=== PATIENT | female | born 1945 | race Caucasian/White ===

== ENCOUNTER 2017-12-14 01:17 | Inpatient (IN) | payer MEDICARE, OTHER ==
[2017-12-14] MEDS: SODIUM CHLORIDE 0.9% 1L BAG IV* ×2 (01:35→03:34)
[2017-12-14] MEDS: DILTIAZEM 25 MG INJ IV ×2 (01:35→05:43)
[2017-12-14 02:41] LABS: ABNORMAL IP MESSAGE 1; HEMOGLOBIN 9.9 g/dl (12.0-16.0); MEAN CORPUSCULAR HEMOGLOBIN 28.4 pg (29.0-33.0); MEAN PLATELET VOLUME 9.1 fl (7.4-10.4); NUCLEATED RED BLOOD CELLS% 2.7 /100WBC (0.0-0.0); PLATELET COUNT 62 10^3/UL (140-415); RED BLOOD COUNT 3.49 10^6/ul (4.20-5.40); RED CELL DISTRIBUTION WIDTH 16.5 % (11.5-14.5)
[2017-12-14 02:41] LABS: WHITE BLOOD COUNT 2.2 10^3/ul (4.8-10.8)
[2017-12-14] MEDS: morphine 4 MG/ML VIAL IV (02:54)
[2017-12-14] MEDS: METOPROLOL 5 MG INJ IV ×2 (02:55→04:55)
[2017-12-14 02:58] LABS: ALANINE AMINOTRANSFERASE 57 IU/L (13-69); ALBUMIN 2.1 g/dl (3.3-4.9); ALBUMIN/GLOBULIN RATIO 0.91; ALKALINE PHOSPHATASE 76 IU/L (42-121); ANION GAP 11 (8-16); ASPARTATE AMINO TRANSFERASE 22 IU/L (15-46); BILIRUBIN,INDIRECT 0.3 mg/dl (0-1.1); BILIRUBIN,TOTAL 0.3 mg/dl (0.2-1.3); BLOOD UREA NITROGEN 16 mg/dl (7-20); CALCIUM 7.3 mg/dl (8.4-10.2); CARBON DIOXIDE 23 mmol/L (21-31); CHLORIDE 104 mmol/L (97-110); GLUCOSE 137 mg/dl (70-220); POTASSIUM 3.5 mmol/L (3.5-5.1); SODIUM 134 mmol/L (135-144); TOTAL PROTEIN 4.4 g/dl (6.1-8.1)
[2017-12-14 03:01] LABS: INR 1.09; PROTIME 14.3 Sec (11.9-14.9); PT RATIO 1.1
[2017-12-14 03:02] LABS: PARTIAL THROMBOPLASTIN TIME 27.2 Sec (25.0-35.0)
[2017-12-14 03:09] LABS: POSITIVE DIFF @See below
[2017-12-14 03:11] LABS: LACTIC ACID 4.5 mmol/L (0.5-2.0)
[2017-12-14 03:13] LABS: ADD MAN DIFF? YES
[2017-12-14] MEDS: CEFEPIME 2GM/50 ML (PMX) 50 ML IVPB (03:40)
[2017-12-14] MEDS ORDERED: NACL 0.9% 3 ML SYG IV (04:00)
[2017-12-14] MEDS ORDERED: BISACODYL (EC) 5 MG TAB PO (04:00)
[2017-12-14] MEDS ORDERED: HYDROCODONE/APAP (5/325) TAB PO (04:00)
[2017-12-14] MEDS ORDERED: DOCUSATE SODIUM 100 MG CAP PO (04:00)
[2017-12-14] MEDS ORDERED: ONDANSETRON 4 MG INJ IV (04:00)
[2017-12-14] MEDS ORDERED: morphine 2 MG INJ IV (04:00)
[2017-12-14] MEDS ORDERED: ACETAMINOPHEN 325 MG TAB PO (04:00)
[2017-12-14 04:02] LABS: BAND NEUTROPHILS #M 0.8 10^3/ul (0.0-0.6); BAND NEUTROPHILS % (M) 40 % (0-4); ERYTHROBLAST% (NRBC) (M) 3 % (0-0); LYMPHOCYTES % (M) 3 % (15-51); MONOCYTES % (M) 2 % (0-11); MYELOCYTES % (M) 2 % (0-0); PLATELET ESTIMATE DECREASED; POLYCHROMASIA 1+ (0-0); SEG NEUT #M 1.2 10^3/ul (1.6-7.5); SEGMENTED NEUTROPHILS (M) % 53 % (39-77); SMUDGE%M 2 % (0-0)
[2017-12-14] MEDS: VANCOMYCIN 1 GM (PMX) 250 ML IVPB (04:27)
[2017-12-14] MEDS: HYDROmorphONE 0.5 MG/0.5 ML SYG IV (05:15)
[2017-12-14] MEDS: SOD CHLORIDE 0.9% 1,000 ML IV ×5 (05:30→16:14)
[2017-12-14] MEDS ORDERED: ACETAMINOPHEN 650MG/20.3ML CUP PO (05:30)
[2017-12-14] MEDS ORDERED: HYDROmorphONE 0.5 MG/0.5 ML SYG IV (05:30)
[2017-12-14] MEDS: IOHEXOL 300MG/ML 150 ML BTL (05:55)
[2017-12-14] MEDS: SOD CHLORIDE 0.9% 100 ML ×2 (05:55→10:59)
[2017-12-14] MEDS ORDERED: VANCOMYCIN IV PER PHARMACY XX (06:00)
[2017-12-14] MEDS: AMIODARONE 150MG/D5W BOLUS 100 ML IV (06:11)
[2017-12-14] MEDS ORDERED: SUCCINYLCHOLINE CHLORIDE 100 MG/5 ML SYG IV (07:00)
[2017-12-14] MEDS ORDERED: ETOMIDATE 20 MG INJ (07:00)
[2017-12-14] MEDS: ETOMIDATE 20 MG INJ IV (07:19)
[2017-12-14] MEDS: SUCCINYLCHOLINE CHLORIDE 100 MG/5 ML SYG IV (07:19)
[2017-12-14] MEDS: NORepinephrine 8MG/250 ML (PMX 250 ML IV ×3 (07:21→15:31)
[2017-12-14] MEDS: LORAZEPAM 2 MG INJ IV (07:21)
[2017-12-14] MEDS ORDERED: DOPamine-D5W 1.6 MG/ML 250 ML (07:31)
[2017-12-14 07:50] LABS: AADO2 Arterial 599.1 mmHg (7.0-24.0); Allen Test ACCEPTAB; Arterial Base Excess -8.2 mmol/L (-3.0-3); Arterial Blood Gas Oxygen Sat 96.2 mmHG (95.0-98.0); Arterial COHb 0.3 % (0.0-3.0); Arterial Fraction of Oxyhgb 95.6 % (93.0-99.0); Arterial HCO3 15.8 mmol/L (22.0-26.0); Arterial MetHb 0.3 % (0.0-1.5); Arterial Total Hemglobin 11.7 g/dl (12.0-18.0); Arterial pCO2 27.9 mmhg (35-45); MODE VENT - AC; Site Left Radial
[2017-12-14] MEDS: DOBUTamine/D5W 1 MG/ML DRIP 250 ML IV (07:55)
[2017-12-14] MEDS: PIPER-TAZO 3.375 GM IV (PMX) 100 ML IVPB ×2 (08:00→14:59)
[2017-12-14] MEDS: PANTOPRAZOLE 40 MG INJ IV (08:00)
[2017-12-14 08:52] LABS: CREATINE KINASE 27 IU/L (23-200)
[2017-12-14 08:56] LABS: LACTIC ACID 6.3 mmol/L (0.5-2.0)
[2017-12-14 09:03] LABS: CK INDEX 5.1; CK-MB 1.38 ng/ml (0.0-2.4); TROPONIN-I 0.089 ng/ml (0.000-0.120)
[2017-12-14] MEDS: PHENYLephrine 20MG IN 250 ML 250 ML IV (09:05)
[2017-12-14] MEDS: SOD CHLORIDE 0.9% 500 ML IV (09:08)
[2017-12-14] MEDS: ENOXAPARIN 40 MG/0.4 ML SYG SC (10:17)
[2017-12-14] MEDS: MIDAZOLAM (DRIP) 50 mg/50 mL 50 ML IV ×3 (10:36→19:23)
[2017-12-14] MEDS ORDERED: ACETAMINOPHEN 650 MG SUPP PR (10:44)
[2017-12-14] MEDS: ACETAMINOPHEN 650 MG SUPP PR ×2 (10:46→18:07)
[2017-12-14] MEDS: IOHEXOL 100 ML (10:59)
[2017-12-14] MEDS ORDERED: NORepinephrine 8MG/250 ML (PMX 250 ML IV (12:30)
[2017-12-14 13:11] LABS: LACTIC ACID 4.2 mmol/L (0.5-2.0)
[2017-12-14] MEDS: VASOPRESSIN 60 UNIT in DEXTROSE 5% 57 ML IV (14:43)
[2017-12-14] MEDS ORDERED: FENTAnyl (DRIP) 1000 mcg/100mL 100 ML IV (15:00)
[2017-12-14] MEDS ORDERED: VANCOMYCIN 500MG/NS (PMX) 100 ML IVPB (16:00)
[2017-12-14] MEDS ORDERED: AMIKACIN IV PER PHARMACY XX (16:00)
[2017-12-14] MEDS: FENTAnyl (DRIP) 1000 mcg/100mL 100 ML IV (16:01)
[2017-12-14] MEDS: PHENYLephrine 40 MG in DEXTROSE 5% 496 ML IV ×3 (16:24→22:04)
[2017-12-14] MEDS: MEROPENEM 1 GM/50ML(PMX) 50 ML IVPB (16:29)
[2017-12-14] MEDS ORDERED: AMIKACIN 450 MG in DEXTROSE 5% 100 ML IVPB (18:00)
[2017-12-14 20:39] LABS: AADO2 Arterial 185.3 mmHg (7.0-24.0); Allen Test ACCEPTAB; Arterial Base Excess -14.4 mmol/L (-3.0-3); Arterial Blood Gas Oxygen Sat 98.4 mmHG (95.0-98.0); Arterial COHb 0.3 % (0.0-3.0); Arterial Fraction of Oxyhgb 97.8 % (93.0-99.0); Arterial HCO3 9.1 mmol/L (22.0-26.0); Arterial MetHb 0.3 % (0.0-1.5); Arterial Total Hemglobin 10.7 g/dl (12.0-18.0); MODE VENT - AC; Site Right Radial
[2017-12-14] MEDS: SOD CHLORIDE 0.9% IVPB (20:43)
[2017-12-14] MEDS: AMIKACIN IVPB (20:43)
[2017-12-14 20:49] LABS: LACTIC ACID 7.1 mmol/L (0.5-2.0)
[2017-12-14] MEDS: SODIUM BICARBONATE (IV ADD) 150 MEQ in DEXTROSE 5% 850 ML IV (22:38)
[2017-12-14] MEDS ORDERED: NA BICARBONATE 8.4% 50 ML SYG (23:28)
[2017-12-14] MEDS: NA BICARBONATE 8.4% 50 ML SYG IV (23:50)
[2017-12-15] MEDS: MEROPENEM 1 GM/50ML(PMX) 50 ML IVPB ×3 (00:02→14:39)
[2017-12-15] MEDS: NYSTATIN 30 GM POWDER BTL TOP ×2 (00:23→08:05)
[2017-12-15] MEDS: PHENYLephrine 40 MG in DEXTROSE 5% 496 ML IV ×8 (00:24→18:08)
[2017-12-15] MEDS: EPINEPHrine 4 MG in DEXTROSE 5% 246 ML IV ×4 (00:45→15:19)
[2017-12-15 01:01] LABS: AADO2 Arterial 185.3 mmHg (7.0-24.0); Allen Test ACCEPTAB; Arterial Base Excess -14.4 mmol/L (-3.0-3); Arterial Blood Gas Oxygen Sat 98.4 mmHG (95.0-98.0); Arterial COHb 0.3 % (0.0-3.0); Arterial Fraction of Oxyhgb 97.8 % (93.0-99.0); Arterial HCO3 9.1 mmol/L (22.0-26.0); Arterial MetHb 0.3 % (0.0-1.5); Arterial Total Hemglobin 10.7 g/dl (12.0-18.0); MODE VENT - AC; Site Right Radial
[2017-12-15] MEDS: VASOPRESSIN 60 UNIT in DEXTROSE 5% 57 ML IV (03:47)
[2017-12-15 05:37] LABS: LACTIC ACID 7.8 mmol/L (0.5-2.0)
[2017-12-15 05:54] LABS: MAGNESIUM 1.5 mg/dl (1.7-2.5)
[2017-12-15 06:01] LABS: ABNORMAL IP MESSAGE 1; HEMATOCRIT 26.7 % (37.0-47.0); HEMOGLOBIN 8.9 g/dl (12.0-16.0); MEAN CORPUSCULAR HEMOGLOBIN 28.9 pg (29.0-33.0); MEAN CORPUSCULAR HGB CONC 33.3 g/dl (32.0-37.0); MEAN CORPUSCULAR VOLUME 86.7 fl (82.0-101.0); NUCLEATED RED BLOOD CELLS% 16.2 /100WBC (0.0-0.0); RED BLOOD COUNT 3.08 10^6/ul (4.20-5.40); RED CELL DISTRIBUTION WIDTH 17.6 % (11.5-14.5)
[2017-12-15 06:04] LABS: ADD MAN DIFF? YES; PLATELET COUNT 34 10^3/UL (140-415); POSITIVE DIFF @See below
[2017-12-15] MEDS: PANTOPRAZOLE 40 MG INJ IV (06:16)
[2017-12-15] MEDS: ACETAMINOPHEN 650 MG SUPP PR (06:22)
[2017-12-15 07:55] LABS: ALANINE AMINOTRANSFERASE 340 IU/L (13-69); ALBUMIN 1.2 g/dl (3.3-4.9); ALKALINE PHOSPHATASE 67 IU/L (42-121); ANION GAP 14 (8-16); ASPARTATE AMINO TRANSFERASE 378 IU/L (15-46); BILIRUBIN,INDIRECT 0.2 mg/dl (0-1.1); BILIRUBIN,TOTAL 0.2 mg/dl (0.2-1.3); BLOOD UREA NITROGEN 16 mg/dl (7-20); CARBON DIOXIDE 15 mmol/L (21-31); CHLORIDE 102 mmol/L (97-110); CREATININE 0.66 mg/dl (0.44-1.00); GLUCOSE 386 mg/dl (70-220); POTASSIUM 3.2 mmol/L (3.5-5.1); SODIUM 128 mmol/L (135-144); TOTAL PROTEIN 2.7 g/dl (6.1-8.1)
[2017-12-15 08:04] LABS: CALCIUM 5.6 mg/dl (8.4-10.2)
[2017-12-15 08:16] LABS: ANISOCYTOSIS 1+ (0-0); BAND NEUTROPHILS #M 1.9 10^3/ul (0.0-0.6); BAND NEUTROPHILS % (M) 49 % (0-4); EOSINOPHILS % (M) 1 % (0-7); ERYTHROBLAST% (NRBC) (M) 18 % (0-0); GIANT THROMBO% (M) 1 % (0-0); LYMPHOCYTES #M 0.2 10^3/ul (0.8-2.9); LYMPHOCYTES % (M) 5 % (15-51); METAMYELOCYTES #M 0.5 10^3/ul (0.0-0.0); METAMYELOCYTES %M 13 % (0-0); MICROCYTOSIS 1+ (0-0); MONOCYTES % (M) 2 % (0-11); MYELOCYTES #M 0.2 10^3/ul (0.0-0.0); MYELOCYTES % (M) 6 % (0-0); PLATELET ESTIMATE SIG DECREASED; POIKILOCYTOSIS 1+ (0-0); POLYCHROMASIA 1+ (0-0); SEGMENTED NEUTROPHILS (M) % 24 % (39-77); SMUDGE%M 3 % (0-0); SPHEROCYTES 2+ (0-0)
[2017-12-15] MEDS ORDERED: POTASSIUM CHLORIDE 20 MEQ POWDER FOR ORAL SOLN PO ×3 (09:00)
[2017-12-15] MEDS: SODIUM BICARBONATE (IV ADD) 150 MEQ in DEXTROSE 5% 850 ML IV ×2 (09:38→18:00)
[2017-12-15] MEDS: MAGNESIUM SULFATE 4 GM/100 ML 100 ML IVPB (10:26)
[2017-12-15 11:44] LABS: LACTIC ACID 6.6 mmol/L (0.5-2.0)
[2017-12-15 12:38] LABS: ADD UMIC YES; UR ASCORBIC ACID NEGATIVE (NEGATIVE); UR BACTERIA FEW /HPF (NONE SEEN); UR BILIRUBIN (Dip) NEGATIVE (NEGATIVE); UR BLOOD (Dip) 2+ mg/dL (NEGATIVE); UR CLARITY CLEAR (CLEAR); UR COLOR YELLOW (YELLOW); UR GLUCOSE (Dip) 3+ mg/dL (NEGATIVE); UR KETONES (Dip) NEGATIVE (NEGATIVE); UR LEUKOCYTE ESTERASE (Dip) NEGATIVE Leu/ul (NEGATIVE); UR NITRITE (Dip) NEGATIVE (NEGATIVE); UR RBC 5 /HPF (0-5); UR SPECIFIC GRAVITY (Dip) 1.007 (1.003-1.030); UR TOTAL PROTEIN (Dip) NEGATIVE (NEGATIVE); UR UROBILINOGEN (Dip) NEGATIVE (NEGATIVE); UR WBC 4 /HPF (0-5)
[2017-12-15] MEDS: MIDAZOLAM (DRIP) 50 mg/50 mL 50 ML IV (13:08)
[2017-12-15] MEDS: HYDROCORTISONE 100 MG INJ IV (14:07)
[2017-12-15] MEDS: morphine 10 MG INJ IV (18:00)
[2017-12-15] MEDS ORDERED: ARTIFICIAL TEARS 15 ML OPH BOTH EYES ×2 (18:00→19:30)
[2017-12-15] MEDS ORDERED: DIMETHICONE STICK TOP (18:00)
[2017-12-15] MEDS: morphine (DRIP) 100 MG/100 ML 100 ML IV (18:27)
[2017-12-15] MEDS ORDERED: AMIKACIN IVPB (20:00)
[2017-12-15] MEDS ORDERED: SOD CHLORIDE 0.9% IVPB (20:00)
== END 2017-12-15 20:14 | disposition expired | DRG 871 ==
LOC: ICU 11:04 → E/R 01:17 → ICU 03:26
PROC: 0BH17EZ Insertion of Endotracheal Airway into Trachea, Via Natural or Artificial Opening (ICD-10-PCS; principal; 2017-12-14)
PROC: 5A1935Z Respiratory Ventilation, Less than 24 Consecutive Hours (ICD-10-PCS; 2017-12-14)
PROC: 02HV33Z Insertion of Infusion Device into Superior Vena Cava, Percutaneous Approach (ICD-10-PCS; 2017-12-14)
PROC: B548ZZA Ultrasonography of Superior Vena Cava, Guidance (ICD-10-PCS; 2017-12-14)
DX: A41.50 Gram-negative sepsis, unspecified (principal); R65.21 Severe sepsis with septic shock; N17.0 Acute kidney failure with tubular necrosis; J96.01 Acute respiratory failure with hypoxia; C41.9 Malignant neoplasm of bone and articular cartilage, unspecified; C79.9 Secondary malignant neoplasm of unspecified site; D61.818 Other pancytopenia; E87.2 Acidosis; Z51.5 Encounter for palliative care; R23.3 Spontaneous ecchymoses; M84.65 Pathological fracture in other disease, pelvis and femur; I10 Essential (primary) hypertension; G89.3 Neoplasm related pain (acute) (chronic)
CPT/HCPCS: 31500; 36415; 36600; 71045; 71275; 80053; 80150; 81001; 82550; 82553; 82803; 83605; 83735; 84484; 85025; 85610; 85730; 87040; 87070; 87081; 87086; 89220; 93005; 93306; 94002; 94003; 94770; 96374; 96375; 99291-25; J1250